=== PATIENT | male | born 1970 ===

== ENCOUNTER → 2020-07-09 | Outpatient (CLI) | payer OTHER | END | disposition home or self-care (01) | LOC: SLP 19:24 | PROVIDERS: ATTEND Internal Medicine Critical Care Medicine | DX: G47.33 Obstructive sleep apnea (adult) (pediatric) (principal) | CPT/HCPCS: 95810 ==

== ENCOUNTER → 2020-07-23 | Outpatient (CLI) | payer OTHER | END | disposition home or self-care (01) | LOC: SLP 19:44 | PROVIDERS: ATTEND Internal Medicine Critical Care Medicine | DX: G47.33 Obstructive sleep apnea (adult) (pediatric) (principal); I10 Essential (primary) hypertension; E11.9 Type 2 diabetes mellitus without complications | CPT/HCPCS: 95811 ==